=== PATIENT | female | born 1985 | race Caucasian/White ===

== ENCOUNTER 2023-07-29 08:36 | Emergency (ER) | payer OTHER, SELFPAY ==
--- NOTE | 2023-07-29 09:01 | ED.GENMED ---
History of Present Illness
General
Chief Complaint: Eye Problems
Source: patient
Time Seen by Provider: 07/29/23 08:44
Travel History
Have you had any contact with someone who has COVID-19?: No
Do you have any symptoms of coronavirus? Fever > 100 degrees, chills, cough, shortness of breath, sore throat, loss of taste or smell, muscle aches, or headache?: No
History of Present Illness
History of Present Illness:
37-year-old female with past medical history of migraines, interstitial cystitis, anxiety presenting to the emergency department for evaluation of right eye injection, swelling and discharge in the setting of a recent upper respiratory infection,
URI symptoms are mostly resolved but right I discharge and erythema started last night. Patient went to local urgent care who gave her some antibiotic drops which she used twice and states woke up this morning with increased symptoms prompting her
to come to the ER today. Patient denies any visual disturbances, ocular pain, pain with extraocular movements, headache, rhinorrhea, foreign body sensation, fevers or any other concerns. Patient does not use contact lenses or glasses. No other
concerns.
Past History
Past History
ED Past Medical History: Psychiatric (PMDD and anxiety), Other (Migraines) and Other (Interstitial cystitis)
ED Past Surgical History: None
Social History
Tobacco: Non-smoker
Alcohol: None
Drug: None
Personal:
Living: with family
Employment: Employed
Review of Systems
Review of Systems
All Other Systems: ROS reviewed and negative except as documented in HPI and ROS
Phy Exam
Physical Exam
Physical Exam:
GENERAL: Alert , in no apparent distress
Visual acuity: Right eye 20/25, left eye 20/20
EYE: conjunctiva moderately injected on the right, clear discharge noted from the lateral aspect of the right eye, there is upper lid edema but does not extend into the periorbital or preseptal spaces. EOMI without pain, pupils 4 mm bilateral and
round
Head: Normocephalic atraumatic
NECK: Supple,
ENT: mmm.
LUNGS: no acute respiratory distress
NEUROLOGICAL: Alert and oriented
SKIN: Warm and dry, skin intact.
MUSCULOSKELETAL: well perfused.
PSYCH: Normal and appropriate interaction.
Scores
Heart Failure Risk
Heart Failure Risk Score: Not Applicable
Heart Score for Chest Pain Patients
STEMI patient?: Not applicable
Withdrawal Assessment of Alcohol
Withdrawal Assessment Completed?: Not applicable
Course
Orders/Labs/Results
Orders:
Orders
07/29/23 09:01
Visual Acuity- Treatment ONCE
Vital Signs
Initial and Last Documented VS:
Initial Vital Signs
Temp Pulse Resp Pulse Ox
98.1 F 83 18 98
07/29/23 08:39 07/29/23 08:39 07/29/23 08:39 07/29/23 08:39
Last Documented Vital Signs
Temp Pulse Resp Pulse Ox
98.1 F 83 18 98
07/29/23 08:39 07/29/23 08:39 07/29/23 08:39 07/29/23 08:39
MDM/Problems Addressed
Differential Diagnosis Includes:
Viral conjunctivitis, bacterial conjunctivitis, preseptal cellulitis, orbital cellulitis, foreign body, corneal abrasion
MDM/Problems Addressed:
37-year-old female presenting to the emergency department for right eye injection with reported increased swelling to the right upper lid today prompting her to come to the emergency department. She was given an antibiotic drop yesterday by urgent
care. I suspect viral conjunctivitis to be the most likely diagnosis. I did discuss with the patient the possibility for preseptal/orbital cellulitis however given her presentation combined with recent upper respiratory infection that I suspected
conjunctivitis to be the most likely diagnosis. I did provide patient with a prescription for Augmentin however I strongly advised use of this medication unless further symptoms are to develop. Patient expressed understanding. Aware of return
precautions to the emergency department. In the meantime advised supportive care with cool compresses, NSAIDs/Tylenol as needed.
*Pulse Oximetry
Patient hypoxic: no
*Critical Care Note
Total Time (30-74mins, 75-104mins- exclusive of procedures): Not Applicable
ED Attending Note
-
Portions of this chart may have been created with voice recognition software.� Occasional wrong word or��sound alike� substitutions may have occurred due to the inherent limitations of voice recognition software.
Discharge Plan
Departure
Patient Disposition: Home (Routine Discharge)
Date of Disposition: 07/29/23
Time of Disposition: 09:01
Patient with high blood pressure during this ER visit?: No
Discharge Problem:
Acute conjunctivitis of right eye
Instructions: Conjunctivitis (Pinkeye) (DC)
Prescriptions:
New
amoxicillin-pot clavulanate 875-125 mg tablet
1 tab PO BID 10 Days Qty: 20 0RF
No Action
diclofenac sodium 75 mg tablet,delayed release (DR/EC)
75 mg PO BID Qty: 10 0RF
Interventions
Interventions:
*Risk Screen - Suicide Last Done: 07/29/23 08:39
*General Assessment Last Done: 07/29/23 08:39
*Neglect/Abuse Screening Last Done: 07/29/23 08:39
ED- Fall Risk Assessment Last Done: 07/29/23 08:54
*ED COVID-19 Vaccine History Last Done: 07/29/23 08:39
--- NOTE | 2023-07-29 09:39 | EDRN ---
Pt was seen totally by Sandhya FUENTES and then discharged by Sandhya FUENTES. This RN did not see pt.
== END 2023-07-29 09:15 | disposition home or self-care (01) ==
LOC: EMR 08:36
PROVIDERS: EMERGENCY PHYSICIAN Emergency Medicine; FAMILY PHYSICIAN Family Medicine
DX: H10.31 Unspecified acute conjunctivitis, right eye (principal); J06.9 Acute upper respiratory infection, unspecified
CPT/HCPCS: 99283

== ENCOUNTER 2024-07-28 10:26 | Emergency (ER) | payer OTHER, SELFPAY ==
[2024-07-28 10:28] VITALS: BP 143/89
[2024-07-28 10:58] VITALS: BMI 33.0
--- NOTE | 2024-07-28 11:51 | ED.GENMED ---
History of Present Illness
General
Chief Complaint: Headache
Source: patient
Time Seen by Provider: 07/28/24 11:21
History of Present Illness
History of Present Illness:
38-year-old female with past medical history of fibromyalgia, arthritis, interstitial cystitis and migraines presenting to the emergency department for evaluation after she noticed a bump within the frontal portion of her scalp couple of days ago
and upon touching the area started to feel a sudden headache described to be [id number] like sensation that radiated down her face and now remains with varying areas on her scalp and accompanied with left eye twitching, intermittent
lightheadedness/dizzy spells, fatigue and generally feeling unwell. Patient contacted her emery grinder yesterday but was unable to see the patient for an appointment but did advise that if symptoms persisted over the weekend that patient should
come to the ER for neuroimaging. Patient states symptoms today are not any different than what she has been experiencing. She does note that at the end of June she had the flu but has since recovered from this.
Past History
Past History
ED Past Medical History: Fibromyalgia, Psychiatric (PMDD and anxiety), Other (Migraines) and Other (Interstitial cystitis)
ED Past Surgical History: Tonsilectomy
Social History
Tobacco: Non-smoker
Alcohol: None
Drug: None
Personal:
Living: with family
Employment: Employed
Review of Systems
Review of Systems
All Other Systems: ROS reviewed and negative except as documented in HPI and ROS
Phy Exam
Physical Exam
Physical Exam:
GENERAL: Alert , in no apparent distress
HEAD: NCAT
EYE: pupils equal and reactive, 4mm b/l, EOMI
NECK: Supple, no significant adenopathy.
ENT: o/p clr, mmm.
CARDIAC: Regular rate and rhythm .
LUNGS: Clear breath sounds bilaterally, no acute respiratory distress, no wheezes/rales/rhonchi
NEUROLOGICAL: Alert and oriented, no focal neuro deficits
SKIN: Warm and dry, skin intact.
MUSCULOSKELETAL: No edema, well perfused.
PSYCH: Normal and appropriate interaction.
Scores
Heart Failure Risk
Heart Failure Risk Score: Not Applicable
Heart Score for Chest Pain Patients
STEMI patient?: Not applicable
Withdrawal Assessment of Alcohol
Withdrawal Assessment Completed?: Not applicable
Course
Orders/Labs/Results
Orders:
Orders
07/28/24 11:38
CT Head W/o Iv Contrast Urgent
Comment:
Reason For Exam: headache
07/28/24 11:40
Test Result ONCE
07/28/24 11:42
Complete Blood Count/With Diff Urgent
Comprehensive Metabolic Panel Urgent
HCG, Serum Qualitative Screen Urgent
Magnesium Urgent
TSH Urgent
Abnormal Lab Results
07/28/24
11:42
MPV 11.3 H fL
(7.4-10.4)
BUN 18 H mg/dl
(7-17)
Calcium 10.5 H mg/dl
(8.4-10.2)
AST 41 H U/L
(14-36)
ALT 43 H U/L
(0-35)
07/28/24 11:42
07/28/24 11:42
Vital Signs
Initial and Last Documented VS:
Initial Vital Signs
Temp Pulse Resp BP Pulse Ox
98.4 F 89 18 143/89 98
07/28/24 10:28 07/28/24 10:28 07/28/24 10:28 07/28/24 10:28 07/28/24 10:28
Last Documented Vital Signs
Temp Pulse Resp BP Pulse Ox
98.4 F 89 18 143/89 98
07/28/24 10:07/28/24 10:07/28/24 10:07/28/24 10:07/28/24 10:28
MDM/Problems Addressed
Differential Diagnosis Includes:
electrolyte derangement, thyroid disorder, post viral syndrome, tension headache, migraine headache, MS, minimal concern for ICH
MDM/Problems Addressed:
38-year-old female presenting to the ER for evaluation of the request of her emery grinder for vague symptoms that been ongoing for the last 2 to 3 weeks described to be varying headaches, left eye fasciculations, questionable lump on her frontal
scalp and dizziness. Patient's exam is reassuring and without any focality. Will check labs. Had discussion with patient in regards to neuroimaging and that my suspicion for anything significant was quite low and the patient agrees, given the
fact she was sent by her emery grinder for the imaging she would feel more comfortable with obtaining CT scan at this time. Anticipate discharge home with continued outpatient follow-up
*Pulse Oximetry
Patient hypoxic: no
*Critical Care Note
Total Time (30-74mins, 75-104mins- exclusive of procedures): Not Applicable
Data Reviewed
Review of Other/Old Records Reveals: Labs
Patient Management
Escalation/DeEscalation of care consider admission/obs:
Patient CT findings noted and discussed with the patient as well as provided with a printout CT report. I suspect cyst to be the most likely diagnosis. Patient can follow-up with her primary care provider as needed. Stable for discharge and aware
of return precautions.
ED Attending Note
-
Portions of this chart may have been created with voice recognition software.� Occasional wrong word or��sound alike� substitutions may have occurred due to the inherent limitations of voice recognition software.
Discharge Plan
Departure
Patient Disposition: Home (Routine Discharge)
Date of Disposition: 07/28/24
Time of Disposition: 14:56
Patient with high blood pressure during this ER visit?: Yes
Discharge Problem:
Headache
Instructions: Headache, Adult (DC)
Prescriptions:
No Action
diclofenac sodium 75 mg tablet,delayed release (DR/EC)
75 mg PO BID Qty: 10 0RF
amoxicillin-pot clavulanate 875-125 mg tablet
1 tab PO BID 10 Days Qty: 20 0RF
Referrals:
Rebecca Linder MD [Family Provider] -
Interventions
Interventions:
*Risk Screen - Suicide Last Done: 07/28/24 10:28
*General Assessment Last Done: 07/28/24 10:28
*Neglect/Abuse Screening Last Done: 07/28/24 10:28
ED- Fall Risk Assessment Last Done: 07/28/24 10:58
*ED COVID-19 Vaccine History Last Done: 07/28/24 10:28
*Nursing Disposition Last Done: 07/28/24 15:02
ED- Neurological Assessment Last Done: 07/28/24 10:58
Discharge Date and Time
Discharge Date/Time: 07/28/24 15:03
Print Language: MALAWIAN
[2024-07-28 11:54] LABS: % Basophils 0.3 % (0-2); % Eosinophils 5.3 % (0-6); % Immature Granulocytes 0.2 % (0-0.5); % Lymphocytes 31.8 % (20.5-51.1); % Monocytes 6.8 % (1.7-9.3); % Neutrophils 55.6 % (42.2-75.2); Absolute Eosinophils 0.5 10^3/uL (0-0.7); Absolute Lymphocytes 2.7 10^3/uL (1.2-3.4); Absolute Monocytes 0.6 10^3/uL (0.1-0.6); Absolute Neutrophils 4.8 10^3/uL (1.4-6.5); Hematocrit 39.3 % (37.0-47.0); Hemoglobin 13.4 g/dL (12.0-16.0); Mean Corp Hgb Conc. 34.1 g/dL (33.0-37.0); Mean Corpuscular Volume 87.9 fL (81.0-99.0); Mean Platelet Volume 11.3 fL (7.4-10.4); Nucleated Red Blood Cells % 0 %; Platelet Count 316 10^3/uL (130-400); Red Blood Cell Count 4.47 10^6/uL (4.20-5.40); Red Cell Dist. Width 13.2 % (11.5-14.5); White Blood Cell Count 8.6 10^3/uL (4.8-10.8)
[2024-07-28 12:05] LABS: HCG, Serum Qualitative Screen Negative
[2024-07-28 12:12] LABS: ALT (SGPT) 43 U/L (0-35); AST (SGOT) 41 U/L (14-36); Albumin 4.4 g/dl (3.5-5.0); Alkaline Phosphatase 66 U/L (38-126); Blood Urea Nitrogen 18 mg/dl (7-17); Calcium 10.5 mg/dl (8.4-10.2); Carbon Dioxide 28 mmol/L (22-30); Chloride 105 mmol/L (98-107); Estimated Creatinine Clearance 90 ml/min; Glucose 88 mg/dl (70-99); Magnesium 2.3 mg/dl (1.6-2.3); Potassium 4.7 mmol/L (3.5-5.1); Sodium 139 mmol/L (135-145); Total Bilirubin 0.6 mg/dl (0.2-1.3); Total Protein 7.5 g/dl (6.3-8.2); eGFR > 60.00
[2024-07-28 12:40] LABS: TSH 1.04 uIU/ml (0.47-4.68)
== END 2024-07-28 15:03 | disposition home or self-care (01) ==
LOC: EMR 10:26
PROVIDERS: Physician Assistant Medical; EMERGENCY PHYSICIAN Emergency Medicine; FAMILY PHYSICIAN Family Medicine
DX: R51.9 Headache, unspecified (principal); M79.7 Fibromyalgia
CPT/HCPCS: 99284; 70450; 80053; 83735; 84443; 84703; 85025

== ENCOUNTER → 2024-09-11 09:54 | Outpatient (REF) | payer OTHER, SELFPAY | LOC: HWRAD 09:54 | PROVIDERS: ATTENDING PHYSICIAN Family Medicine | DX: R16.1 Splenomegaly, not elsewhere classified (principal) | CPT/HCPCS: 76705 ==